=== PATIENT | male | born 1955 | race Caucasian/White ===

== ENCOUNTER 2018-01-08 02:40 | Day surgery (SDC) | payer OTHER ==
[~2018-01-08] VITALS: Ht 172.7 cm; Wt 60.8 kg
[2018-01-08] MEDS ORDERED: LIDOCAINE MPF 1% 5 ML VIAL ONE (06:46)
[2018-01-08] MEDS ORDERED: PROPOFOL EMUL(*) 10MG/ML 20 ML 60 ML ONE (06:46)
[2018-01-08 07:04] VITALS: BP 122/86
--- NOTE | 2018-01-08 07:15 | Post Operative Progress Note ---
Post Operative Progress Note Date: Jan 08, 2018 Time: 08:49 Surgeon: drake Anesthesia: dr echeverria Pre-Op Diagnosis: personal history of polyps Post-Op Diagnosis: sigmid diverticula and 2 mm polyp at 55 cmn Procedure(s): colonoscopy with polyp AISHA BERNAL MD Jan 08, 2018 07:15
--- NOTE | 2018-01-08 07:16 | Short(Outpt) Discharge Summary ---
Discharge Summary Reason for Hosp/Final Diag: (1) Encounter for colonoscopy due to history of adenomatous colonic polyps Hospital Course & Plan: sigmoid diverticulosis and 2 mm polyp at 55 cm Departure Discharge to: Home Discharge Instructions Home Meds Discontinued Reported Medications [None] No Conflict Check 09/23/07 Diet: High Fiber Activity: As Tolerated AISHA BERNAL MD Jan 08, 2018 07:16
[2018-01-08] MEDS ORDERED: LIDOCAINE/SOD BICARB 8.4% SYR ID ONE (07:20)
[2018-01-08] MEDS ORDERED: NORMOSOL R SOLN(*) 1000 ML BAG 1,000 ML IV PRN (07:20)
[2018-01-08 08:49] VITALS: BP 122/86
[2018-01-08 09:15] VITALS: BP 129/57
[2018-01-08 09:30] VITALS: BP 120/86
[2018-01-08 09:42] VITALS: BP 109/86
[2018-01-08 09:45] VITALS: BP 117/88
--- NOTE | 2018-01-08 15:08 | OPERATIVE REPORT 1 ---
EVENT DATE: January 08, 2018 SURGEON: Tadeo Gomez MD ANESTHESIOLOGIST: Amrik Connor MD ANESTHESIA: Sedation. PREOPERATIVE DIAGNOSIS Personal history of polyps. POSTOPERATIVE DIAGNOSES 1. A 2 mm polyp at 55 cm. 2. Sigmoid diverticulosis. PROCEDURE PERFORMED Colonoscopy with polypectomy. DESCRIPTION OF PROCEDURE The patient was placed in the left lateral decubitus position and given intravenous sedation. Rectal exam was unremarkable. A flexible colonoscope was inserted and advanced to the cecum. He had an excellent bowel prep. Ileocecal valve, base of the cecum, and appendiceal orifice were identified. The scope was slowly withdrawn. No abnormalities were noted in the cecum or right colon. The transverse colon was normal. At 55 cm, he had a 2 mm polypoid projection. This was removed with cold cup. He had a few sigmoid diverticula. The rectum was normal. The scope was retroflexed. That appeared to be normal. The patient will require another colonoscopy in five years because of his personal history of polyps. [facility]
== END 2018-01-08 09:50 | disposition home or self-care (01) ==
LOC: OR 02:40
PROVIDERS: ATTEND Surgery
DX: Z12.11 Encounter for screening for malignant neoplasm of colon (principal); D12.6 Benign neoplasm of colon, unspecified; K57.30 Diverticulosis of large intestine without perforation or abscess without bleeding; Z86.010 Personal history of colon polyps
CPT/HCPCS: 00811; 45380; 88305; J2001; J2704

== ENCOUNTER 2019-04-22 12:39 | Inpatient (IN) | payer OTHER ==
[~2019-04-22] VITALS: Ht 172.7 cm; Wt 66.2 kg
--- NOTE | 2019-04-22 12:54 | EKG ---
FACILITY: [facility] PATIENT NAME: REJI JENSEN : [id number] MR: [id number] V: [id number] EXAM DATE: ORDERING PHYSICIAN: SCOTT BLAKE TECHNOLOGIST: MIAH Test Reason : ACCIDENT Blood Pressure : / mmHG Vent. Rate : 077 BPM Atrial Rate : 077 BPM P-R Int : 144 ms QRS Dur : 076 ms QT Int : 376 ms P-R-T Axes : 070 019 051 degrees QTc Int : 425 ms Normal sinus rhythm Normal ECG When compared with ECG of 23-FEB-2015 07:54, No significant change was found Confirmed by Mauro Alvarenga ([id number]) on 04/22/2019 10:38:29 PM Referred By: LOU Confirmed By:Mauro Foster
[2019-04-22] MEDS ORDERED: fentaNYL CITR 100 MCG/2 ML AMP IVP ONE ×3 (13:00→14:45)
[2019-04-22 13:12] LABS: PLATELET COUNT, AUTOMATED 393 K/uL (150-450)
--- NOTE | 2019-04-22 13:14 | RADIOLOGY IMAGING REPORT ---
[place] [facility] [place] NAME: Aleks Echeverria : 1955 MR: [id number] V: [id number] EXAM DATE: ORDERING PHYSICIAN: SCOTT BLAKE TECHNOLOGIST: Location: [facility] Patient: Aleks Echeverria : 1955 Visit/Account:[id number] Date of Sevice: 04/22/2019 Exam type: CHEST SINGLE AP History: Trauma and chest pain Comparison: None. Findings: There is a large right-sided pneumothorax which is difficult to quantify due to the semiupright catalino ble nature of the examination although appears to represent at least 60% of the thorax. A definite m ediastinal shift is not seen. Extensive subcutaneous emphysema is seen over the chest and neck more so on the right than the left. There also appears to be pneumomediastinum. Numerous right-sided rib fractures are present. The cardiac silhouette is normal in size. IMPRESSION: 1. Large right-sided pneumothorax, difficult to quantified due to the semiupright portable negative examination although appears to represent at least 60% of the thorax. Extensive subcutaneous emphyse ma is noted over the chest and neck, right side more so than the left. There also appears to be pneu momediastinum. Numerous Right-sided rib fractures also present Results were called to SCOTT BLAKE at 04/22/2019 1:05 PM. Report Dictated By: Yaneth Kaye MD at 04/22/2019 1:03 PM Report E-Signed By: Yaneth Kaye MD at 04/22/2019 1:07 PM WSN:[id number]
[2019-04-22] MEDS ORDERED: DIPHTH/TETANUS/ACEL. PERTUSSIS IM ONLY ONE (13:40)
[2019-04-22 13:41] LABS: INR 0.94
--- NOTE | 2019-04-22 14:01 | RADIOLOGY IMAGING REPORT ---
[place] [facility] [place] NAME: Aleks Echeverria : 1955 MR: [id number] V: [id number] EXAM DATE: ORDERING PHYSICIAN: SCOTT BLAKE TECHNOLOGIST: Location: [facility] [place] Patient: Aleks Echeverria : 1955 Visit/Account:[id number] Date of Sevice: 04/22/2019 CHEST SINGLE AP INDICATION: POST CHEST TUBE PLACEMENT COMPARISON: 04/22/2019 FINDINGS: Reidentified is a large right-sided pneumothorax with some improved aeration within the upper lobe bu t near complete collapse of the right lower lobe. Extensive subcutaneous emphysema is present and ap pears worsened. A chest tube is not identified. No mediastinal shift is identified. IMPRESSION: 1. No chest tube is identified. There remains a large right-sided pneumothorax with worsening subcu taneous emphysema. No right to left shift is identified to suggest tension pneumothorax. Report Dictated By: Carlos Beebe at 04/22/2019 1:50 PM Report E-Signed By: Carlos Beebe at 04/22/2019 1:56 PM WSN:[id number]
[2019-04-22] MEDS ORDERED: IOPAMIDOL 76% 100 ML INFUS BTL 100 ML ONE (14:03)
--- NOTE | 2019-04-22 15:18 | RADIOLOGY IMAGING REPORT ---
[facility] PATIENT NAME: Aleks Echeverria : 1955 MR: [id number] V: [id number] EXAM DATE: ORDERING PHYSICIAN: SCOTT BLAKE TECHNOLOGIST: [place] [facility] [place] Aleks Echeverria : 1955 Visit/Account:[id number] Date of Sevice: 04/22/2019 EXAMINATION: CT chest, abdomen, and pelvis with IV contrast HISTORY: Trauma. TECHNIQUE: Axial CT images of the chest, abdomen, and pelvis were obtained with IV contrast, with c oronal and sagittal 2D reconstructed images. One of the following dose optimization techniques was utilized in the performance of this exam: Autom ated exposure control; adjustment of the mA and/or kV according to the patient's size; or use of an i terative reconstruction technique. Specific details can be referenced in the facility's radiology C T exam operational policy. Contrast: 75 mL of IV Isovue-370. COMPARISON: None. FINDINGS: Chest: Lungs and pleura: There is a right-sided chest tube in place traversing the lateral right fifth inte rcostal space and extending superiorly towards the right lung apex. There is a persistent small right -sided pneumothorax, approximately 10%. There is patchy parenchymal opacity throughout the right lowe r lobe with a rounded 3.8 cm focus of air lucency compatible with pulmonary contusion and laceration. Likely component of atelectasis at the lung base. Trace amount of right-sided pleural fluid. Mild left basilar atelectasis. There is a tiny left apical pneumothorax. The central airways are augustine nt. Mediastinum and kailash: Extensive pneumomediastinum throughout the chest. No significant mediastinal f luid or hemorrhage. Heart, aorta, and great vessels: The thoracic aorta is patent and normal in caliber. No evidence of traumatic aortic injury. Vascular calcifications including coronary artery calcifications. Normal hea rt size. No pericardial effusion. Chest lymph node assessment: Negative. Bones: There are nondisplaced fractures of the lateral right third, fourth, fifth, sixth, and sevent h ribs, of the posterolateral right ninth rib, and of the posterior right fourth, fifth, sixth, seven th, eighth, and ninth ribs near the costovertebral junctions. There are additional fractures of the anterior right second, third, and fifth rib cartilages. No visualized left rib fracture. There is a nondisplaced fracture along the right lateral aspect of t he manubrium. No evidence of acute fracture along the thoracic spine. Normal alignment. Vertebral body height is ma intained with mild multilevel degenerative changes. Chest wall: There is extensive subcutaneous emphysema tracking along the soft tissues of the right c hest wall. This crosses the midline to involve the anterior left chest wall and extends superiorly al rika the visualized neck, in continuity with the extensive pneumomediastinum. Abdomen/pelvis: Liver: Small hypodensities in the liver are too small to characterize but may represent small cysts. No evidence of a traumatic liver injury. The hepatic veins and portal veins are patent. Gallbladder and bile ducts: Negative. Spleen: Calcified granulomas in the spleen. The spleen enhances normally. Pancreas: There are several punctate parenchymal calcifications along the pancreatic neck. This may relate to prior pancreatitis. There are subcentimeter cystic foci in the pancreatic neck and body. Adrenal glands: Negative. Kidneys: The kidneys enhance normally. No retroperitoneal fluid or hemorrhage. Chronic cortical scar ring along the upper pole of the left kidney. Bowel and peritoneum: The small bowel and colon are normal in caliber. No bowel wall thickening. Sca ttered colonic diverticulosis. No free fluid or free intraperitoneal air. Pelvic structures: Negative. Lymph node assessment: Negative. Vessels: Scattered aortoiliac atherosclerosis with a normal caliber abdominal aorta. There is plaque along the proximal SMA with high-grade stenosis. Musculoskeletal: No ev dence of acute fracture in the lumbar spine or bony pelvis. Normal alignment along the lumbar spine. Vertebral body height is maintained, with mild multilevel degenerative harper es.Body wall: Subcutaneous emphysema continues inferiorly along the soft tissues of the lateral and posterior right flank. No discrete soft tissue hematoma. IMPRESSION: 1. Right-sided chest tube in place. Small residual right pneumothorax, approximately 10%. 2. Pulmonary contusion and laceration in the right lower lobe, with a trace amount of right pleural f luid. 3. Extensive subcutaneous emphysema extending along the soft tissues of the chest and neck, along wit h extensive pneumomediastinum in the chest. 4. Multiple right-sided rib fractures as delineated above. This includes fractures of lateral right r ibs 3-7, posterolateral right rib 9, and posterior right ribs 4-9. Additional fractures of the anteri or right second, third, and fifth rib cartilages. 5. Nondisplaced fracture along the right lateral aspect of the manubrium. 6. No acute traumatic findings in the abdomen or pelvis. 7. Other nonacute findings as described above. Findings were discussed with SCOTT BLAKE at 04/22/2019 3:00 PM. Report Dictated By: Michael Marshall MD at 04/22/2019 2:43 PM Report E-Signed By: Michael Marshall MD at 04/22/2019 3:11 PM WSN:[id number]
[2019-04-22] MEDS ORDERED: MORPHINE 2 MG/ML SYR IVP ONE (15:35)
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
[2019-04-22] MEDS ORDERED: ONDANSETRON 4 MG/2 ML VIAL IVP PRN (16:35)
[2019-04-22] MEDS ORDERED: FLUSH 10 ML SYR IVP PRN (16:35)
[2019-04-22] MEDS ORDERED: NALOXONE HCL 0.4 MG/ML VIAL IVP PRN (16:35)
[2019-04-22 17:09] VITALS: BP 146/93
[2019-04-22] MEDS: NS(*) 0.9% 1000 ML BAG 1,000 ML IV PRN (17:25)
[2019-04-22] MEDS: ACETAMINOPHEN(*)1000 MG/100 ML 100 ML IVPB SCH ×2 (17:25→23:42)
[2019-04-22 18:30] VITALS: BP 140/90
[2019-04-22 20:00] VITALS: BP 125/94
[2019-04-22] MEDS: DOCUSATE SODIUM 100 MG CAP PO SCH (20:06)
[2019-04-22] MEDS: FAMOTIDINE 20 MG TAB PO SCH (20:06)
[2019-04-22] MEDS: PREGABALIN 25 MG CAP PO SCH (20:25)
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
[2019-04-22] MEDS: MORPHINE 2 MG/ML SYR IVP PRN (22:31)
[2019-04-23] VITALS (7 sets, daily range): BP systolic 107–144; BP diastolic 70–89; Ht 172.7 cm; Wt 66.2 kg
[2019-04-23] MEDS: MORPHINE 2 MG/ML SYR IVP PRN ×4 (02:37→13:58)
[2019-04-23 05:51] LABS: PLATELET COUNT, AUTOMATED 221 K/uL (150-450)
[2019-04-23] MEDS: ACETAMINOPHEN(*)1000 MG/100 ML 100 ML IVPB SCH (06:06)
--- NOTE | 2019-04-23 06:41 | RADIOLOGY IMAGING REPORT ---
[place] [facility] [place] Reji Echeverria : 1955 MR: [id number] V: [id number] EXAM DATE: ORDERING PHYSICIAN: REJI RICHEY TECHNOLOGIST: Location: [facility] [place] Patient: Reji Echeverria : 1955 Visit/Account:[id number] Date of Sevice: 04/23/2019 Portable chest: Indication: Trauma follow-up. Technique: A single frontal film was obtained. Comparison: 04/22/2019 Lines and tubes: A chest tube is present near the right apex. Skeletal and soft tissue structures: There is diffuse subcutaneous emphysema in the chest wall and ne ck. There is evidence of acute right rib fractures. Heart and mediastinum: Persistent pneumomediastinum. No evidence of cardiomegaly. Lung yun: No foc al consolidation or volume loss. Pleural spaces: Tiny right apical pneumothorax. No significant effusion. Impression: Chest tube in satisfactory position. Tiny right apical pneumothorax. Report Dictated By: Oseas Simon MD at 04/23/2019 6:30 AM Report E-Signed By: Oseas Simon MD at 04/23/2019 6:33 AM WSN:[id number]
[2019-04-23] MEDS: NS(*) 0.9% 1000 ML BAG 1,000 ML IV PRN (07:17)
[2019-04-23] MEDS ORDERED: NS(*) 0.9% 1000 ML BAG 1,000 ML IV PRN (07:51)
[2019-04-23] MEDS ORDERED: traMADol 50 MG TAB PO PRN (07:55)
[2019-04-23] MEDS ORDERED: ACETAMINOPHEN 325 MG TAB PO PRN (07:55)
--- NOTE | 2019-04-23 08:02 | General Surgery Progress Note ---
Subjective Progress Notes Subjective Feeling pretty good this morning. Pain controlled with current regimen. Passing flatus. No other complaints today. Physical Exam Vital Signs Date Time Temp Pulse Resp B/P (MAP) Pulse Ox O2 Delivery O2 Flow Rate FiO2 04/23/19 07:24 95 Nasal Cannula 1.5 04/23/19 07:19 98.0 62 16 107/80 (89) Intake and Output 04/23/19 07:02 Intake Total 580 ml Output Total 1589 ml Balance -1009 ml Intake Oral 480 ml IV Total 100 ml Output Urine Total 1325 ml Chest Tube Drainage Total 264 ml # Voids 1 General Appearance: Alert, Awake, No Acute Distress, Afebrile Neuro: No Gross deficits Eyes: PERRLA Cardiovascular: Regular Rate and Rhythm Respiratory: Clear to Auscultation Chest: Other (Subcutaneous crepitus) GI: Soft and Non-Tender Musculoskeletal: Other (No TTP in extremities except in areas of abrasions, no deformities. No C/T/L TTP or stepoff) Extremities: Warm, Perfused Psych: Alert & Oriented X3, Appropriate Mood & Affect Result Diagram: 04/23/1952104/23/19521 Monitor Interpretation: Normal Sinus Rhythm Assessment and Plan Problems: (1) Ribs, multiple fractures Status: Acute Assessment & Plan: 04/22/19: Admit for pain control and aggressive pulmonary hygiene and chest tube management. Will follow his CXR for improvement in his subcutaneous emphysema and PTX and will follow the pleurovac for resolution of his air leak. Will start clear diet this evening and plan on regular diet tomorrow if he does well with this. Will mobilize him early and I stressed to him deep breathing and regular use of the incentive spirometer. He's currently getting the spirometer over 2000mL. Pain control with acetaminophen, NSAIDS, opioids and pregabalin. Tertiary exam in the morning. Lovenox for VTE prophylaxis starting in the morning and H2 rocio for GI prophylaxis. I have explained his injuries and their management including the plan described above with him in great detail. He indicates his understanding of this plan and he seem agreeable with proceeding with this plan. 04/23/19: Pt doing well. CXR with decreased PTX. No airleak on pleurovac box. Chest tube placed on water seal this morning. Will get CXR at noon to ensure he's tolerating water seal. Continue aggressive pulmonary hygiene, mobilization pain control. Will change pain control to PO and monitor effect. Bowel regimen today. Regular diet. Stop IV fluids after tolerating diet. Lovenox, H2 rocio. (2) Pneumothorax, right Status: Acute Assessment & Plan: Chest tube reexpansion. Management as described above. (3) Fracture of manubrium Status: Acute Assessment & Plan: Pain control and aggressive pulmonary hygiene as described above. Condition Stable. Time Spent: < 30 min Exam Sepsis Risk: No Definite Risk Problem Qualifiers (1) Ribs, multiple fractures: Encounter type: initial encounter Fracture type: closed Laterality: right Qualified Codes: S22.41XA - Multiple fractures of ribs, right side, initial encounter for closed fracture (2) Fracture of manubrium: Encounter type: initial encounter Fracture type: closed Qualified Codes: S22.21XA - Fracture of manubrium, initial encounter for closed fracture REJI RICHEY MD Apr 23, 2019 08:02
[2019-04-23] MEDS: POLYETHYLENE GLYCOL 17 GM PKT PO SCH (09:00)
[2019-04-23] MEDS: FAMOTIDINE 20 MG TAB PO SCH ×2 (09:04→21:03)
[2019-04-23] MEDS: PREGABALIN 25 MG CAP PO SCH ×3 (09:05→21:03)
[2019-04-23] MEDS: ENOXAPARIN 40 MG/0.4ML SYR SC SCH (09:05)
[2019-04-23] MEDS: DOCUSATE SODIUM 100 MG CAP PO SCH ×2 (09:06→21:03)
--- NOTE | 2019-04-23 11:37 | NUR ---
Pt requested morphine before initial walk in the hallway. Pt feels he will be able to use motrin to control his pain going forward.
[2019-04-23] MEDS: IBUPROFEN 200 MG TAB PO PRN ×2 (13:01→21:03)
--- NOTE | 2019-04-23 13:09 | RADIOLOGY IMAGING REPORT ---
FACILITY: [facility] - [place] PATIENT NAME: Reji Echeverria : 1955 MR: [id number] V: [id number] EXAM DATE: ORDERING PHYSICIAN: REJI RICHEY TECHNOLOGIST: Location: [facility] [place] Patient: Reji Echeverria : 1955 Visit/Account:[id number] Date of Sevice: 04/23/2019 CHEST SINGLE AP INDICATION: Right PTX/rib fx, Chest tube to water seal COMPARISON: 04/23/2019 at 6:17 AM FINDINGS: Right-sided chest tube is in place. There is a trace right apical pneumothorax present. Extensive subcutaneous emphysema is unchanged. The right lung is clear. IMPRESSION: 1. The right lung remains expanded on waterseal. Only a trace pneumothorax is present. Report Dictated By: Carlos Beebe at 04/23/2019 12:59 PM Report E-Signed By: Carlos Beebe at 04/23/2019 1:02 PM WSN:[email or web address]
[2019-04-23] MEDS: oxyCODONE HCL 5 MG CAP PO PRN (19:14)
[2019-04-24] VITALS (7 sets, daily range): BP systolic 119–154; BP diastolic 76–110
[2019-04-24] MEDS: oxyCODONE HCL 5 MG CAP PO PRN ×6 (01:33→23:24)
[2019-04-24 06:00] LABS: PLATELET COUNT, AUTOMATED 187 K/uL (150-450)
--- NOTE | 2019-04-24 06:31 | RADIOLOGY IMAGING REPORT ---
FACILITY: [facility] - [place] PATIENT NAME: Reji Echeverria : 1955 MR: [id number] V: [id number] EXAM DATE: ORDERING PHYSICIAN: REJI RICHEY TECHNOLOGIST: Location: [facility] Patient: Reji Echeverria : 1955 Visit/Account:[id number] Date of Sevice: 04/24/2019 EXAMINATION: Portable AP Chest 04/24/2019 5:00 AM HISTORY: Right PTX/rib fx, Chest tube to water seal COMPARISON: 04/23/2019 FINDINGS: Cardiomediastinal contours: Pneumomediastinum. Stable heart size. Patient is not intubated. Lungs and pleura: Stable right chest tube position. Likely tiny apical pneumothorax. Extensive chest wall emphysema greater on the right than the left extending up into the neck base on each side. Granu elvis in the right base. Bones/soft tissues: Lower lateral right rib fractures. IMPRESSION: Extensive chest wall and neck base emphysema with pneumomediastinum and likely a tiny rig ht apical pneumothorax. Indwelling right chest tube. Report Dictated By: David Ramirez MD at 04/24/2019 6:21 AM Report E-Signed By: David Ramirez MD at 04/24/2019 6:25 AM WSN:[id number]
--- NOTE | 2019-04-24 09:11 | General Surgery Progress Note ---
Subjective Progress Notes Subjective no complaints, walking without difficulty. No SOB Physical Exam Vital Signs Date Time Temp Pulse Resp B/P (MAP) Pulse Ox O2 Delivery O2 Flow Rate FiO2 04/24/19 06:56 98.9 65 16 124/81 (95) 93 Nasal Cannula 1.0 Intake and Output 04/24/19 07:02 Intake Total 1920 ml Output Total 2530 ml Balance -610 ml Intake Oral 1920 ml Output Urine Total 2425 ml Chest Tube Drainage Total 105 ml # Voids 9 General Appearance: Alert, Awake, No Acute Distress, Afebrile Neuro: No Gross deficits Cardiovascular: Normal Rhythm & Peripheral Pulses, Regular Rate and Rhythm Respiratory: No Respiratory Distress, Clear to Auscultation GI: Soft and Non-Tender Musculoskeletal: No Weakness/Pain Integumentary: Skin Intact without Lesion / Mass Psych: Alert & Oriented X3, Appropriate Mood & Affect Result Diagram: 04/24/19 0505 04/24/19 0505 Monitor Interpretation: Normal Sinus Rhythm Assessment and Plan Problems: (1) Ribs, multiple fractures Status: Acute Assessment & Plan: 04/22/19: Admit for pain control and aggressive pulmonary hygiene and chest tube management. Will follow his CXR for improvement in his subcutaneous emphysema and PTX and will follow the pleurovac for resolution of his air leak. Will start clear diet this evening and plan on regular diet tomorrow if he does well with this. Will mobilize him early and I stressed to him deep breathing and regular use of the incentive spirometer. He's currently getting the spirometer over 2000mL. Pain control with acetaminophen, NSAIDS, opioids and pregabalin. Tertiary exam in the morning. Lovenox for VTE prophylaxis starting in the morning and H2 rocio for GI prophylaxis. I have explained his injuries and their management including the plan described above with him in great detail. He indicates his understanding of this plan and he seem agreeable with proceeding with this plan. 04/23/19: Pt doing well. CXR with decreased PTX. No airleak on pleurovac box. Chest tube placed on water seal this morning. Will get CXR at noon to ensure he's tolerating water seal. Continue aggressive pulmonary hygiene, mobilization pain control. Will change pain control to PO and monitor effect. Bowel regimen today. Regular diet. Stop IV fluids after tolerating diet. Lovenox, H2 rocio. 04/24/19: stable progress. Cont Chest tube to water seal, scant air leak this am, much less than last evening. Cont care plan as above. Repeat CXR in am. (2) Pneumothorax, right Status: Acute Assessment & Plan: Chest tube reexpansion. Management as described above. 04/24/19: Plan as above with regards to chest tube. (3) Fracture of manubrium Status: Acute Assessment & Plan: Pain control and aggressive pulmonary hygiene as described above. Time Spent: > 30 min Exam Sepsis Risk: No Definite Risk Problem Qualifiers (1) Ribs, multiple fractures: Encounter type: initial encounter Fracture type: closed Laterality: right Qualified Codes: S22.41XA - Multiple fractures of ribs, right side, initial encounter for closed fracture (2) Fracture of manubrium: Encounter type: initial encounter Fracture type: closed Qualified Codes: S22.21XA - Fracture of manubrium, initial encounter for closed fracture SHIREEN LOPEZ MD Apr 24, 2019 09:11
[2019-04-24] MEDS: DOCUSATE SODIUM 100 MG CAP PO SCH ×2 (09:17→21:08)
[2019-04-24] MEDS: PREGABALIN 25 MG CAP PO SCH ×3 (09:17→20:55)
[2019-04-24] MEDS: POLYETHYLENE GLYCOL 17 GM PKT PO SCH (09:17)
[2019-04-24] MEDS: FAMOTIDINE 20 MG TAB PO SCH ×2 (09:17→20:55)
[2019-04-24] MEDS: ENOXAPARIN 40 MG/0.4ML SYR SC SCH (09:17)
[2019-04-24] MEDS: MAGNESIUM HYDROXIDE* 30ML UDCP PO PRN (14:56)
[2019-04-24] MEDS: LIDOCAINE 5% PATCH TP SCH (16:18)
[2019-04-24] MEDS ORDERED: PATCH REMOVAL 1 EA TP SCH (21:00)
[2019-04-25 03:07] VITALS: BP 124/82
[2019-04-25] MEDS: oxyCODONE HCL 5 MG CAP PO PRN ×4 (03:13→15:38)
--- NOTE | 2019-04-25 06:24 | RADIOLOGY IMAGING REPORT ---
FACILITY: [facility] - [place] PATIENT NAME: Aleks Echeverria : 1955 MR: [id number] V: [id number] EXAM DATE: ORDERING PHYSICIAN: SHIREEN LOPEZ TECHNOLOGIST: Location: [facility] Patient: Aleks Echeverria : 1955 Visit/Account:[id number] Date of Sevice: 04/25/2019 CHEST SINGLE AP 04/25/2019 05:00 hours. HISTORY: Pneumothorax. Rib fractures. Chest tube. Follow-up. COMPARISON: 04/24/2019 and studies dating to 04/22/2019. TECHNIQUE: Portable AP view of the chest. FINDINGS: TUBES/LINES/HARDWARE: There is a right chest tube. PULMONARY/PLEURA: Tiny right apical pneumothorax has decreased in size. No change in the right lower lobe traumatic pneumatocele. Mild bibasilar atelectasis, unchanged. No pleural effusion. CARDIOMEDIASTINAL: Cardiac and mediastinal silhouettes are within normal limits. There has been impro vement in the pneumomediastinum. BONES/SOFT TISSUES: No acute osseous abnormality. Unchanged right rib fractures. The visible abdomen is normal. No significant change in the diffuse subcutaneous emphysema of the bilateral chest and nec k. IMPRESSION: 1. Interval decrease in the tiny right apical pneumothorax. 2. Interval improvement in the pneumomediastinum. 3. No change in aeration of the lungs. 4. No change in the subcutaneous emphysema. Report Dictated By: Thea Trimble at 04/25/2019 6:14 AM Report E-Signed By: Thea Trimble at 04/25/2019 6:18 AM WSN:[id number]
[2019-04-25 07:32] VITALS: BP 138/82
[2019-04-25] MEDS: LIDOCAINE 5% PATCH TP SCH (09:00)
[2019-04-25] MEDS: POLYETHYLENE GLYCOL 17 GM PKT PO SCH (09:12)
[2019-04-25] MEDS: DOCUSATE SODIUM 100 MG CAP PO SCH (09:13)
[2019-04-25] MEDS: FAMOTIDINE 20 MG TAB PO SCH (09:13)
[2019-04-25] MEDS: PREGABALIN 25 MG CAP PO SCH ×2 (09:13→14:19)
[2019-04-25] MEDS: ENOXAPARIN 40 MG/0.4ML SYR SC SCH (09:14)
--- NOTE | 2019-04-25 09:36 | General Surgery Progress Note ---
Subjective Progress Notes Subjective no complaints. No SOB. No air leak noted on chest tube. Physical Exam Vital Signs Date Time Temp Pulse Resp B/P (MAP) Pulse Ox O2 Delivery O2 Flow Rate FiO2 04/25/19 07:32 98.3 71 16 138/82 (100) 91 Room Air 04/25/19 04:39 1.5 Intake and Output 04/25/19 07:02 Intake Total 1945 ml Output Total 1765 ml Balance 180 ml Intake Oral 1945 ml Output Urine Total 1575 ml Chest Tube Drainage Total 190 ml # Voids 5 General Appearance: Alert, Awake, No Acute Distress, Afebrile Neuro: No Gross deficits Cardiovascular: Normal Rhythm & Peripheral Pulses Respiratory: No Respiratory Distress, Clear to Auscultation, Other (chest tube initact, no leak, minimal subcut air palp) Musculoskeletal: No Weakness/Pain Integumentary: Skin Intact without Lesion / Mass Psych: Alert & Oriented X3, Appropriate Mood & Affect Result Diagram: 04/24/19 0505 04/24/19 0505 Monitor Interpretation: Normal Sinus Rhythm Assessment and Plan Problems: (1) Ribs, multiple fractures Status: Acute Assessment & Plan: 04/22/19: Admit for pain control and aggressive pulmonary hygiene and chest tube management. Will follow his CXR for improvement in his subcutaneous emphysema and PTX and will follow the pleurovac for resolution of his air leak. Will start clear diet this evening and plan on regular diet tomorrow if he does well with this. Will mobilize him early and I stressed to him deep breathing and regular use of the incentive spirometer. He's currently getting the spirometer over 2000mL. Pain control with acetaminophen, NSAIDS, opioids and pregabalin. Tertiary exam in the morning. Lovenox for VTE prophylaxis starting in the morning and H2 rocio for GI prophylaxis. I have explained his injuries and their management including the plan described above with him in great detail. He indicates his understanding of this plan and he seem agreeable with proceeding with this plan. 04/23/19: Pt doing well. CXR with decreased PTX. No airleak on pleurovac box. Chest tube placed on water seal this morning. Will get CXR at noon to ensure he's tolerating water seal. Continue aggressive pulmonary hygiene, mobilization pain control. Will change pain control to PO and monitor effect. Bowel regimen today. Regular diet. Stop IV fluids after tolerating diet. Lovenox, H2 rocio. 04/24/19: stable progress. Cont Chest tube to water seal, scant air leak this am, much less than last evening. Cont care plan as above. Repeat CXR in am. 04/25/19: CXR with minimal right apical pneumothorax. Will DC chest tube and repeat CXR this afternoon. Chest tube pulled without difficulty, pt tolerated well. (2) Pneumothorax, right Status: Acute Assessment & Plan: Chest tube reexpansion. Management as described above. 04/24/19: Plan as above with regards to chest tube. (3) Fracture of manubrium Status: Acute Assessment & Plan: Pain control and aggressive pulmonary hygiene as described above. Time Spent: > 30 min Exam Sepsis Risk: No Definite Risk Problem Qualifiers (1) Ribs, multiple fractures: Encounter type: initial encounter Fracture type: closed Laterality: right Qualified Codes: S22.41XA - Multiple fractures of ribs, right side, initial encounter for closed fracture (2) Fracture of manubrium: Encounter type: initial encounter Fracture type: closed Qualified Codes: S22.21XA - Fracture of manubrium, initial encounter for closed fracture SHIREEN LOPEZ MD Apr 25, 2019 09:36
[2019-04-25 11:30] VITALS: BP 139/88
[2019-04-25] MEDS: MAGNESIUM HYDROXIDE* 30ML UDCP PO PRN (11:31)
[2019-04-25 15:09] VITALS: BP 129/86
[2019-04-25] MEDS ORDERED: OXYC5TAB38 PO (16:26)
[2019-04-25] MEDS ORDERED: PREG25 PO (16:26)
[2019-04-25] MEDS ORDERED: DOCU-202 PO (16:26)
[2019-04-25] MEDS ORDERED: ACET-2007 PO (16:26)
[2019-04-25] MEDS ORDERED: IBUP-56 PO (16:26)
[2019-04-25] MEDS ORDERED: LIDO700A19 TP (16:26)
--- NOTE | 2019-04-25 16:32 | Hospitalist Depart ---
Discharge Summary Reason for Hosp/Final Diag: (1) Ribs, multiple fractures Status: Acute Hospital Course & Plan: 04/22/19: Admit for pain control and aggressive pulmonary hygiene and chest tube management. Will follow his CXR for improvement in his subcutaneous emphysema and PTX and will follow the pleurovac for resolution of his air leak. Will start clear diet this evening and plan on regular diet tomorrow if he does well with this. Will mobilize him early and I stressed to him deep breathing and regular use of the incentive spirometer. He's currently getting the spirometer over 2000mL. Pain control with acetaminophen, NSAIDS, opioids and pregabalin. Tertiary exam in the morning. Lovenox for VTE prophylaxis starting in the morning and H2 rocio for GI prophylaxis. I have explained his injuries and their management including the plan described above with him in great detail. He indicates his understanding of this plan and he seem agreeable with proceeding with this plan. 04/23/19: Pt doing well. CXR with decreased PTX. No airleak on pleurovac box. Chest tube placed on water seal this morning. Will get CXR at noon to ensure he's tolerating water seal. Continue aggressive pulmonary hygiene, mobilization pain control. Will change pain control to PO and monitor effect. Bowel regimen today. Regular diet. Stop IV fluids after tolerating diet. Lovenox, H2 rocio. 04/24/19: stable progress. Cont Chest tube to water seal, scant air leak this am, much less than last evening. Cont care plan as above. Repeat CXR in am. 04/25/19: CXR with minimal right apical pneumothorax. Will DC chest tube and repeat CXR this afternoon. Chest tube pulled without difficulty, pt tolerated well. 04/25/19: CXR removal film without evidence of pneumothorax. DC teaching done. DC orders written. (2) Pneumothorax, right Status: Acute Hospital Course & Plan: Chest tube reexpansion. Management as described above. 04/24/19: Plan as above with regards to chest tube. (3) Fracture of manubrium Status: Acute Hospital Course & Plan: Pain control and aggressive pulmonary hygiene as described above. Departure Weight (Pounds): 146 Result Diagram: 04/24/19 0505 04/24/19 0505 Condition: Improved Discharge: Home Discharge Instructions Home Meds Active Scripts Pregabalin (LYRICA) 25 Mg Cap, 25 MG PO TID for 10 Days, #30 CAP Prov:SHIREEN LOPEZ MD 04/25/19 Oxycodone Hcl (OXYCODONE HCL) 5 Mg Tablet, 5-10 MG PO Q6H PRN for PAIN for 10 Days, #20 BOTTLE Prov:SHIREEN LOPEZ MD 04/25/19 Lidocaine (Lidocaine) 5 % Adh..patch, 1 EACH TP QDAY for 10 Days, #10 ADH.PATCH 1 Refill Prov:SHIREEN LOPEZ MD 04/25/19 Ibuprofen (IBUPROFEN) 200 Mg Tablet, 400-600 MG PO Q6H PRN for PAIN for 10 Days, BOTTLE 1 Refill Prov:SHIREEN LOPEZ MD 04/25/19 Docusate Sodium (DOCUSATE SODIUM) 100 Mg Capsule, 100 MG PO BID for 14 Days, #30 CAPSULE 1 Refill Prov:SHIREEN LOPEZ MD 04/25/19 Acetaminophen (MAPAP) 325 Mg Tablet, 325-650 MG PO Q6H PRN for FEVER/PAIN for 10 Days, BOT 1 Refill Prov:SHIREEN LOPEZ MD 04/25/19 Venous Thromboembolism Antithrombotics Is Pt On Any Antithrombotics?: No Problem Qualifiers (1) Ribs, multiple fractures: Encounter type: initial encounter Fracture type: closed Laterality: right Qualified Codes: S22.41XA - Multiple fractures of ribs, right side, initial encounter for closed fracture (2) Fracture of manubrium: Encounter type: initial encounter Fracture type: closed Qualified Codes: S22.21XA - Fracture of manubrium, initial encounter for closed fracture SHIREEN LOPEZ MD Apr 25, 2019 16:32
--- NOTE | 2019-04-25 16:44 | RADIOLOGY IMAGING REPORT ---
FACILITY: [facility] PATIENT NAME: Aleks Echeverria : 1955 MR: [id number] V: [id number] EXAM DATE: ORDERING PHYSICIAN: SHIREEN LOPEZ TECHNOLOGIST: Location: [facility] [place] Patient: Aleks Echeverria : 1955 Visit/Account:[id number] Date of Sevice: 04/25/2019 Examination: CHEST SINGLE AP Comparison: Same day and earlier. History: chest tube removal at 0953; checking expansion of lung Findings: Cardiac and hilar contour size is within normal limits and unchanged. Aortic atherosclerosi s. Pneumomediastinum is less conspicuous. The chest tube has been removed. No definite pneumothorax is identified although evaluation is limit ed by summation artifact related to the extensive overlying simultaneous gas. An air-fluid level in t he right midlung is likely fluid in a traumatic pneumatocele. The left lung is clear. Multiple right rib fractures. Extensive subcutaneous gas throughout the thorax appears little changed. IMPRESSION: 1. Chest tube removal. No definite pneumothorax is identified although evaluation is somewhat limited by artifact from the overlying subcutaneous gas. Continued clinical observation is recommended with repeat imaging as clinically indicated. 2. Right lower lobe traumatic pneumatocele containing an air-fluid level. 3. Multiple right rib fractures. 4. Extensive thoracic subcutaneous gas. Report Dictated By: Heriberto Quintanilla MD at 04/25/2019 4:33 PM Report E-Signed By: Heriberto Quintanilla MD at 04/25/2019 4:37 PM WSN:[id number]
== END 2019-04-25 17:35 | disposition home or self-care (01) | DRG 200 ==
LOC: ER 12:44 → MED 16:42
PROVIDERS: ADMIT Surgery; ATTEND Surgery
PROC: 0W9930Z Drainage of Right Pleural Cavity with Drainage Device, Percutaneous Approach (ICD-10-PCS; principal; 2019-04-22)
DX: S27.0XXA Traumatic pneumothorax, initial encounter (principal); S22.41XA Multiple fractures of ribs, right side, initial encounter for closed fracture; S22.21XA Fracture of manubrium, initial encounter for closed fracture; J93.82 Other air leak; W18.39XA Other fall on same level, initial encounter; Y93.89 Activity, other specified
CPT/HCPCS: 36415; 71045; 71260; 74177; 82040; 82247; 82310; 82374; 82435; 82565; 82947; 84075; 84132; 84155; 84295; 84450; 84460; 84520; 85025; 85610; 85730; 90471; 90715; 93005; 96374; 96376; 99291; A7048; J0131; J1650; J2270; J3010; J7030; Q9967

== ENCOUNTER → 2019-05-12 | Outpatient (CLI) | payer OTHER ==
[2019-04-23 13:35] VITALS: BMI 22.2
[~2019-05-12] MED LIST: ACET-2007 PO; DOCU-202 PO; IBUP-56 PO; LIDO700A19 TP; OXYC5TAB38 PO; PREG25 PO
--- NOTE | 2019-05-12 10:37 | RADIOLOGY IMAGING REPORT ---
FACILITY: [facility] PATIENT NAME: Reji Echeverria : 1955 MR: [id number] V: [id number] EXAM DATE: ORDERING PHYSICIAN: REJI RICHEY TECHNOLOGIST: Location: [facility] Patient: Reji Echeverria : 1955 Visit/Account:[id number] Date of Sevice: 05/12/2019 Chest with lateral, two views. HISTORY: Follow-up injury. COMPARISON: 04/25/2019. The heart size is normal. The thoracic aorta is mildly elongated. Pulmonary vessels are normal. Th e lungs are voluminous. An oval-shaped lesion measuring 6 cm in length is present in the posterior a spect of the right lower chest, essentially unchanged in size compared to previous. The amount of fl uid within the lesion has increased slightly. The amount of gas within the lesion has decreased slig htly. The right lateral costophrenic sulcus is mildly blunted, unchanged. Streaky densities are pre sent in the right lung base, unchanged. No pneumothorax. Bilateral subcutaneous emphysema has resol earline. Multiple right lower rib fractures are essentially unchanged. IMPRESSION: No pneumothorax. Right pulmonary laceration or complex pneumatocele, essentially unchanged. Right basilar lung consolidation, unchanged. Mild right pleural thickening, unchanged. Report Dictated By: Mohan Brown MD at 05/12/2019 10:23 AM Report E-Signed By: Mohan Brown MD at 05/12/2019 10:29 AM WSN:[id number]
== END ==
LOC: RAD 10:05
PROVIDERS: ATTEND Surgery
DX: J43.9 Emphysema, unspecified (principal); S22.49XD Multiple fractures of ribs, unspecified side, subsequent encounter for fracture with routine healing
CPT/HCPCS: 71046